=== PATIENT | female | born 1930 | race Caucasian/White ===

== ENCOUNTER 2017-04-11 16:11 | Emergency (ER) | payer MEDICARE, BC ==
[2017-04-11] MEDS ORDERED: Sodium Chloride 0.9% 1,000 ML IV SCH (17:00)
[2017-04-11] MEDS ORDERED: Dexamethasone 4 MG/ML SDV IVPUSH ONE (17:15)
[2017-04-11] MEDS ORDERED: levETIRAcetam 500 MG in Sodium Chloride 0.9% 100 ML IV ONE (17:16)
[2017-04-11 17:37] VITALS: BP 136/58
--- NOTE | 2017-04-11 17:37 | EDM.PDOC ---
ED HPI GENERAL MEDICAL PROBLEM - General Chief Complaint: General Stated Complaint: ILLNESS Time Seen by Provider: 04/11/17 16:12 Source of Information: Reports: Patient History Limitations: Reports: No Limitations - History of Present Illness INITIAL COMMENTS - FREE TEXT/NARRATIVE: History of present illness: [87-year-old female presenting with family with a history of having increasing trouble with confusion and falling over the last month. She lives alone and they are afraid that she can no longer live by herself. She is pleasant but confused and disoriented she is awake and alert and in good spirits. She denies any headache or visual disturbances denies any chest pain or shortness of breath denies any nausea or vomiting constipation diarrhea or trouble urinating. ] Review of systems: As per history of present illness and below otherwise all systems reviewed and negative. Past medical history: As per history of present illness and as reviewed below otherwise noncontributory. Surgical history: As per history of present illness and as reviewed below otherwise noncontributory. Social history: No reported history of drug or alcohol abuse. Family history: As per history of present illness and as reviewed below otherwise noncontributory. Physical exam: HEENT: Atraumatic, normocephalic, pupils are at 2 mm and are barely perceptible as far as reaction she cannot follow commands as far as following a light she may have a little bit of a left facial droop otherwise facial muscles appear to be intact neck is supple Lungs: Clear to auscultation, breath sounds equal bilaterally, Heart: S1S2, regular, negative for clicks, rubs, or JVD. Abdomen: Soft, nondistended, nontender. Negative for masses or hepatosplenomegaly. Negative for costovertebral tenderness. Pelvis: Stable nontender. Genitourinary: Deferred. Rectal: Deferred. Extremities: Atraumatic, negative for cords or calf pain. Neurovascular unremarkable. Neuro: Awake, alert, and pleasantly disoriented. She is able to move her arms and legs on command. Opens eyes on command. Diagnostics: [Head CT is showing a left frontal mass please see the report for details. 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 - Related Data Allergies Allergy/AdvReac Type Severity Reaction Status Date / Time No Known Allergies Allergy Verified 04/11/17 17:02 Home Meds: Home Meds Acetaminophen [Tylenol Arthritis] 1,300 mg PO ASDIRECTED PRN 04/11/17 [History] Calcium Carbonate/Vitamin D3 [Calcium 500-Vit D3 200 Caplet] 1 tab PO BID [History] Gluc/Josh-Msm#1/Vit C/Himanshu/Bor [Knrwnls-Zeebq-KUQ Complex Cplt] 1 each PO BID [History] Multivitamin with Minerals [Multiple Vitamin] 1 tab PO DAILY 04/11/17 [History] RX: Aspirin 81 mg PO DAILY 04/11/17 [History] RX: Donepezil [Aricept] 10 mg PO DAILY 04/11/17 [History] Past Medical History Cardiovascular History: Reports: Hypertension Genitourinary History: Reports: Chronic Renal Insuffiency 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 Hematologic History: Reports: Other (See Below) Other Hematologic History: thrombocytopenia Dermatologic History: Reports: Other (See Below) Other Dermatologic History: lipoma right back side - Past Surgical History HEENT Surgical History: Reports: Cataract Surgery, Tonsillectomy Female Surgical History: Reports: Hysterectomy Social & Family History - Tobacco Use Smoking Status *Q: Never Smoker - Recreational Drug Use Recreational Drug Use: No ED ROS GENERAL - Review of Systems Review Of Systems: ROS reveals no pertinent complaints other than HPI. ED EXAM, GENERAL - Physical Exam Exam: See Below Course - Vital Signs Last Recorded V/S: Last Vital Signs Temp 36.6 C 04/11/17 16:16 Pulse 68 04/11/17 17:15 Resp 14 04/11/17 17:15 BP 135/70 04/11/17 17:15 Pulse Ox 98 04/11/17 17:15 - Orders/Labs/Meds Orders: Active Orders 24 hr Category Date Time Status EKG Documentation Completion [RC] ASDIRECTED Care 04/11/17 16:19 Active Chest 1V Frontal [CR] Stat Exams 04/11/17 16:19 Taken Head wo Cont [CT] Stat Exams 04/11/17 16:18 Taken Pelvis 1V or 2V [CR] Stat Exams 04/11/17 16:26 Taken SEDIMENTATION RATE MANUAL [HEME] Stat Lab 04/11/17 16:30 Received Sodium Chloride 0.9% [Normal Saline] 1,000 ml Med 04/11/17 17:00 Active IV ASDIRECTED EKG 12 Lead [EK] Stat Ther 04/11/17 16:19 Ordered Medication Orders Sodium Chloride (Normal Saline) 1,000 mls @ 75 mls/hr IV ASDIRECTED KASIE Last Admin: 04/11/17 17:31 Dose: 75 mls/hr Labs: Laboratory Tests 04/11/17 04/11/17 04/11/17 Range/Units 16:30 16:30 16:30 WBC 12.0 H (4.5-11.0) K/uL RBC 4.28 (3.30-5.50) M/uL Hgb 13.1 (12.0-15.0) g/dL Hct 38.7 (36.0-48.0) % MCV 90 (80-98) fL MCH 31 (27-31) pg MCHC 34 (32-36) % Plt Count 200 (150-400) K/uL Neut % (Auto) 81 H (36-66) % Lymph % (Auto) 13 L (24-44) % Ellsworth % (Auto) 5 (2-6) % Eos % (Auto) 0 L (2-4) % Baso % (Auto) 0 (0-1) % Sodium 139 L (140-148) mmol/L Potassium 3.9 (3.6-5.2) mmol/L Chloride 103 (100-108) mmol/L Carbon Dioxide 26 (21-32) mmol/L Anion Gap 13.9 (5.0-14.0) mmol/L BUN 24 H (7-18) mg/dL Creatinine 1.2 H (0.6-1.0) mg/dL Est Cr Clr Drug Dosing 28.60 mL/min Estimated GFR (MDRD) 42 L (>60) Glucose 195 H (74-106) mg/dL Calcium 8.9 (8.5-10.1) mg/dL Total Bilirubin 0.3 (0.2-1.0) mg/dL AST 19 (15-37) U/L ALT 22 (12-78) U/L Alkaline Phosphatase 76 (46-116) U/L Creatine Kinase 82 (26-192) U/L Troponin I < 0.017 (0.000-0.056) ng/mL Total Protein 7.4 (6.4-8.2) g/dL Albumin 3.2 L (3.4-5.0) g/dL Globulin 4.2 H (2.3-3.5) g/dL Albumin/Globulin Ratio 0.8 L (1.2-2.2) TSH, Ultra Sensitive 2.073 (0.358-3.740) uIU/mL Urine Color Urine Appearance Urine pH (4.5-8.0) Ur Specific Barry (1.008-1.030) Urine Protein (NEGATIVE) mg/dL Urine Glucose (UA) (NEGATIVE) mg/dL Urine Ketones (NEGATIVE) mg/dL Urine Occult Blood (NEGATIVE) Urine Nitrite (NEGATIVE) Urine Bilirubin (NEGATIVE) Urine Urobilinogen (NORMAL) mg/dL Ur Leukocyte Esterase (NEGATIVE) Urine RBC (0-5) Urine WBC (0-5) Ur Epithelial Cells Amorphous Sediment Urine Bacteria Urine Mucus 04/11/17 Range/Units 17:20 WBC (4.5-11.0) K/uL RBC (3.30-5.50) M/uL Hgb (12.0-15.0) g/dL Hct (36.0-48.0) % MCV (80-98) fL MCH (27-31) pg MCHC (32-36) % Plt Count (150-400) K/uL Neut % (Auto) (36-66) % Lymph % (Auto) (24-44) % Ellsworth % (Auto) (2-6) % Eos % (Auto) (2-4) % Baso % (Auto) (0-1) % Sodium (140-148) mmol/L Potassium (3.6-5.2) mmol/L Chloride (100-108) mmol/L Carbon Dioxide (21-32) mmol/L Anion Gap (5.0-14.0) mmol/L BUN (7-18) mg/dL Creatinine (0.6-1.0) mg/dL Est Cr Clr Drug Dosing mL/min Estimated GFR (MDRD) (>60) Glucose (74-106) mg/dL Calcium (8.5-10.1) mg/dL Total Bilirubin (0.2-1.0) mg/dL AST (15-37) U/L ALT (12-78) U/L Alkaline Phosphatase (46-116) U/L Creatine Kinase (26-192) U/L Troponin I (0.000-0.056) ng/mL Total Protein (6.4-8.2) g/dL Albumin (3.4-5.0) g/dL Globulin (2.3-3.5) g/dL Albumin/Globulin Ratio (1.2-2.2) TSH, Ultra Sensitive (0.358-3.740) uIU/mL Urine Color Yellow Urine Appearance Clear Urine pH 5.0 (4.5-8.0) Ur Specific Barry 1.020 (1.008-1.030) Urine Protein Negative (NEGATIVE) mg/dL Urine Glucose (UA) Normal (NEGATIVE) mg/dL Urine Ketones Negative (NEGATIVE) mg/dL Urine Occult Blood Negative (NEGATIVE) Urine Nitrite Negative (NEGATIVE) Urine Bilirubin Negative (NEGATIVE) Urine Urobilinogen Normal (NORMAL) mg/dL Ur Leukocyte Esterase Negative (NEGATIVE) Urine RBC 0-5 (0-5) Urine WBC 0-5 (0-5) Ur Epithelial Cells Rare Amorphous Sediment Few Urine Bacteria Few Urine Mucus Few Meds: Medications Generic Name Dose Route Start Last Admin Trade Name Freq PRN Reason Stop Dose Admin Sodium Chloride 1,000 mls @ 75 mls/hr 04/11/17 17:00 04/11/17 17:31 Normal Saline IV 75 mls/hr ASDIRECTED KASIE Administration Discontinued Medications Generic Name Dose Route Start Last Admin Trade Name Freq PRN Reason Stop Dose Admin Dexamethasone 10 mg 04/11/17 17:15 04/11/17 17:25 Dexamethasone IVPUSH 04/11/17 17:16 10 mg ONETIME ONE Administration Levetiracetam 500 mg/ Sodium 105 mls @ 400 mls/hr 04/11/17 17:16 04/11/17 17: 30 Chloride IV 04/11/17 17:30 400 mls/hr ONETIME ONE Administration Departure - Departure Time of Disposition: 17:37 Disposition: DC/Tfer to Acute Hospital 02 Condition: Fair Clinical Impression: Intracranial mass - Discharge Information Forms: ED Department Discharge - My Orders Last 24 Hours: My Active Orders 04/11/17 16:18 Head wo Cont [CT] Stat 04/11/17 16:19 EKG Documentation Completion [RC] ASDIRECTED Chest 1V Frontal [CR] Stat EKG 12 Lead [EK] Stat 04/11/17 16:26 Pelvis 1V or 2V [CR] Stat 04/11/17 16:30 SEDIMENTATION RATE MANUAL [HEME] Stat 04/11/17 17:00 Sodium Chloride 0.9% [Normal Saline] 1,000 ml IV ASDIRECTED - Assessment/Plan Last 24 Hours: My Active Orders 04/11/17 16:18 Head wo Cont [CT] Stat 04/11/17 16:19 EKG Documentation Completion [RC] ASDIRECTED Chest 1V Frontal [CR] Stat EKG 12 Lead [EK] Stat 04/11/17 16:26 Pelvis 1V or 2V [CR] Stat 04/11/17 16:30 SEDIMENTATION RATE MANUAL [HEME] Stat 04/11/17 17:00 Sodium Chloride 0.9% [Normal Saline] 1,000 ml IV ASDIRECTED
--- NOTE | 2017-04-12 10:01 | CR ---
Pelvis 1V or 2V INDICATION: pain FINDINGS: Mild hypertrophic change both hips. Degenerative changes pubic symphysis and lower lumbar spine. Exam otherwise negative.
--- NOTE | 2017-04-12 13:32 | CR ---
Chest 1V Frontal INDICATION: fall FINDINGS: Calcified hilar lymph nodes. No focal infiltrate. Mild osteopenia. Fibrosis or atelectasis left lung base. AP portable chest x-ray otherwise negative.
== END 2017-04-11 18:05 ==
LOC: JP.ED 16:11
DX: G93.89 Other specified disorders of brain (principal); I12.9 Hypertensive chronic kidney disease with stage 1 through stage 4 chronic kidney disease, or unspecified chronic kidney disease; N18.9 Chronic kidney disease, unspecified; M19.90 Unspecified osteoarthritis, unspecified site; Z90.710 Acquired absence of both cervix and uterus; Z79.899 Other long term (current) drug therapy; Z79.82 Long term (current) use of aspirin; Z98.49 Cataract extraction status, unspecified eye
CPT/HCPCS: 36415; 70450; 71010; 72170; 80053; 81001; 82550; 84443; 84484; 85025; 85651; 93005; 96374; 96375; 99285; J1100; J1953; J7030; J7040; 93010